=== PATIENT | female | born 1975 | race Caucasian/White ===

== ENCOUNTER 2016-07-23 16:45 | Emergency (ER) | payer OTHER ==
[~2016-07-23] VITALS: Ht 172.7 cm; Wt 110.0 kg
[~2016-07-23 16:45] MED LIST: NOHOMEMEDS; VALIUM2 MG PO; ZOFRAN ODT4 MG PO
[2016-07-23 17:07] VITALS: BP 147/108
[2016-07-23] MEDS ORDERED: VENTOLIN HFA18 GM IH (20:09)
[2016-07-23] MEDS ORDERED: ZITHROMAX Z-PA250 MG PO (20:09)
[2016-07-23] MEDS ORDERED: MEDROL DOSEPAK4 MG PO (20:09)
[2016-07-23] MEDS ORDERED: ROBITUSSIN AC,T10 ML PO (20:09)
== END 2016-07-23 20:24 | disposition home or self-care (01) ==
LOC: EME 16:45
DX: J20.9 Acute bronchitis, unspecified (principal); F17.200 Nicotine dependence, unspecified, uncomplicated
CPT/HCPCS: 71020; 93005; 94640; 99281; 99284